=== PATIENT | female | born 1995 | race African-American/Black ===

== ENCOUNTER → 2021-08-16 | Emergency (ER) | payer SELFPAY ==
--- NOTE | 2021-08-16 02:20 | NUR ---
CALLED FOR TRIAGE NOT IN WAITING ROOM
--- NOTE | 2021-08-16 02:38 | NUR ---
CALLED FOR TRIAGE NOT IN WAITING ROOM
== END | disposition left against medical advice (07) ==
LOC: ER 02:21
DX: Z53.21 Procedure and treatment not carried out due to patient leaving prior to being seen by health care provider (principal)